=== PATIENT | female | born 1980 | race Caucasian/White ===

== ENCOUNTER → 2018-09-01 | Outpatient (CLI) | payer OTHER ==
--- NOTE | 2018-09-01 15:39 | US ---
EXAM DESCRIPTION: Pelvis Transvaginal: Ultrasound. CLINICAL HISTORY: N85.2. Uterus enlarged on physical exam. LMP 08/25/2018. COMPARISON: None. TECHNIQUE: Endovaginal scanning; transpelvic scanning through the urine filled bladder: [place]-scale and Doppler modes. FINDINGS: Uterus 8.7 x 5.1 x 4.1 cm. Endometrial thickness is 10.5 mm. Echogenic object in the endometrium measures 8.2 x 3.7 mm. Myometrium appears heterogeneous. Uterus not retroflexed. Cervix contains cysts.. Cul-de-sac contains no fluid. Right ovary 2.5 x 1.8 x 3.3 cm normal waveform and color Doppler vascularity. Small follicles but no cysts. No adnexal mass or free fluid. Left ovary 3.4 x 2.9 x 2.3 cm. Normal waveform and color Doppler vascularity. 2.6 x 2.0 x 1.8 cm cyst. Simple appearance with no internal echoes or vascularity. No adnexal mass or free fluid. IMPRESSION: 1. Borderline endometrial thickening with 8 mm echogenic object possibly a polyp. No fluid in the endometrial canal. Uterus not enlarged. No fluid in the cul-de-sac. Cysts in the cervix. 2. 2.6 cm cyst in the left ovary appears uncomplicated. [facility] Best Practice recommendations below.* Follicles in the right ovary. 2.6 cm simple ovarian cyst No follow-up imaging is recommended. Reference: Radiology 2009;256(3):943-54 Electronically signed by: Sacha Daley MD 09/01/2018 3:38 PM [employer]D [employer]GER
== END ==
LOC: US 09:08
PROVIDERS: ATTEND Family Medicine
DX: N85.2 Hypertrophy of uterus (principal); N83.202 Unspecified ovarian cyst, left side

== ENCOUNTER → 2018-12-08 | Outpatient (CLI) | payer OTHER | LOC: GMAL 17:49 | PROVIDERS: ATTEND Family Medicine | DX: E53.8 Deficiency of other specified B group vitamins (principal); R53.83 Other fatigue; E55.9 Vitamin D deficiency, unspecified ==

== ENCOUNTER → 2018-12-16 | Outpatient (CLI) | payer OTHER ==
--- NOTE | 2018-12-16 19:59 | MRI ---
EXAM DESCRIPTION: Brain w/wo Contrast: Magnetic Resonance Imaging. CLINICAL HISTORY: 38 years Female HEADACHE COMPARISON: None. TECHNIQUE: Multiplanar, high-field MRI, multiple conventional sequences, without and with gadolinium IV contrast. No adverse reactions. Multiple axial diffusion sequences. FINDINGS: Normal FLAIR and T2-weighted signal in the periventricular white matter and borrero-white matter junctions of the cerebral hemispheres. . Normal signal in the bilateral basal ganglia. No hemorrhage, no cerebral edema, no mass-effect. Normal contrast enhancement. Normal signal in the brainstem and cerebellar hemispheres. No hemorrhage, no cerebral edema, no mass-effect. Normal contrast enhancement. Concordance of the diffusion and non-diffusion sequences with no evidence of acute or subacute infarction. Cortical sulci, ventricles, and other CSF spaces, and the subdural spaces are normally configured for patients age. No effacement or displacement. No midline shift. No extra-axial hemorrhage. Normal contrast enhancement. Normal flow signal void in the major vessels of the [place], and the venous sinuses. IACs are symmetric bilaterally. Normal signal in the bilateral mastoid air cells. No mass effect in the bilateral Cerebellopontine angles. Normal contrast enhancement. Pituitary gland occupies most of the sella. Normal contrast enhancement. Base of the cerebellar tonsils is at the level of the foramen magnum. No significant abnormalities in the paranasal sinuses. The bony calvarium is intact. IMPRESSION: Normal MRI scan of the brain without and with gadolinium IV contrast. No intra-axial or extra-axial hemorrhage. No mass effect. No cerebral edema. Normal noncontrast MRI diffusion study with no diffusion restriction. No evidence of acute or subacute infarction. Electronically signed by: Sacha Daley MD 12/16/2018 7:56 PM [facility]
== END ==
LOC: MRI 11:11
PROVIDERS: ATTEND Family Medicine
DX: G43.109 Migraine with aura, not intractable, without status migrainosus (principal)

== ENCOUNTER → 2019-08-26 | Outpatient (CLI) | payer OTHER ==
--- NOTE | 2019-08-26 15:23 | MRI ---
EXAM DESCRIPTION: MRA Head and/or Neck CLINICAL HISTORY: 39 years Female, CEREBRAL ANEURYSM COMPARISON: MRI of the brain dated 12/16/2018. TECHNIQUE: MR angiogram of the brain was performed without gadolinium administration. FINDINGS: The bilateral internal carotid arteries demonstrate good flow related signal with no significant stenosis or occlusion or aneurysm. The bilateral middle and anterior cerebral arteries appear normal with no evidence of aneurysm. The basilar artery and bilateral posterior cerebral arteries also appear grossly unremarkable. The bilateral vertebral arteries demonstrate no gross abnormality. IMPRESSION: Normal MR angiogram of the [place] with no significant stenosis or occlusion or aneurysm. Electronically signed by: Anila Ruiz MD 08/26/2019 3:21 PM PR MANAGER
== END ==
LOC: MRI 13:05
PROVIDERS: ATTEND Specialist
DX: I67.1 Cerebral aneurysm, nonruptured (principal)